=== PATIENT | female | born 1955 | race Caucasian/White ===

== ENCOUNTER → 2024-03-02 14:18 | Outpatient (REF) | payer MEDICARE, SELFPAY | LOC: WDC 14:18 | PROVIDERS: ATTENDING PHYSICIAN Nurse Practitioner Adult Health; FAMILY PHYSICIAN Internal Medicine | DX: Z12.31 Encounter for screening mammogram for malignant neoplasm of breast (principal) | CPT/HCPCS: 77063; 77067 ==

== ENCOUNTER → 2024-03-30 15:14 | Outpatient (REF) | payer MEDICARE, SELFPAY ==
[2024-03-30 16:06] LABS: Glucose 98 mg/dl (70-99); HDL Cholesterol 75 mg/dl; LDL Cholesterol, Calculated 102 mg/dl; Total Cholesterol 194 mg/dl (50-199); Triglyceride 85 mg/dl (10-149); Very Low Density Lipoprotein 17 mg/dl (0-30)
[2024-03-31 09:49] LABS: Glycohemoglobin (HgbA1c) 5.4 % (4.0-5.6)
== END ==
LOC: REG 15:14
PROVIDERS: ATTENDING PHYSICIAN Internal Medicine
DX: E78.5 Hyperlipidemia, unspecified (principal); R73.01 Impaired fasting glucose
CPT/HCPCS: 36415; 80061; 82947; 83036

== ENCOUNTER → 2025-04-02 14:36 | Outpatient (REF) | payer MEDICARE, SELFPAY ==
[2025-04-02 15:32] LABS: Hematocrit 38.8 % (37.0-47.0); Hemoglobin 13.1 g/dL (12.0-16.0); Mean Corp Hgb Conc. 33.8 g/dL (33.0-37.0); Mean Corpuscular Volume 99.5 fL (81.0-99.0); Nucleated Red Blood Cells % 0 %; Platelet Count 229 10^3/uL (130-400); Red Cell Dist. Width 11.8 % (11.5-14.5)
[2025-04-02 16:12] LABS: ALT (SGPT) 24 U/L (0-35); AST (SGOT) 22 U/L (14-36); Albumin 4.3 g/dl (3.5-5.0); Alkaline Phosphatase 57 U/L (38-126); Blood Urea Nitrogen 16 mg/dl (7-17); Calcium 9.4 mg/dl (8.4-10.2); Carbon Dioxide 29 mmol/L (22-30); Chloride 106 mmol/L (98-107); Glucose 106 mg/dl (70-99); HDL Cholesterol 71 mg/dl; LDL Cholesterol, Calculated 114 mg/dl; Potassium 4.8 mmol/L (3.5-5.1); Sodium 139 mmol/L (135-145); Total Protein 6.9 g/dl (6.3-8.2); Very Low Density Lipoprotein 20 mg/dl (0-30); eGFR > 60.00
[2025-04-02 16:34] LABS: Vitamin D, 25-OH*** 28.3 ng/mL (30-80)
[2025-04-03 07:32] LABS: Glycohemoglobin (HgbA1c) 5.6 % (4.0-5.6)
== END ==
LOC: REG 14:36
PROVIDERS: ATTENDING PHYSICIAN Family Medicine
DX: M54.2 Cervicalgia (principal); Z01.89 Encounter for other specified special examinations; M85.88 Other specified disorders of bone density and structure, other site; E78.2 Mixed hyperlipidemia; R73.01 Impaired fasting glucose; E55.9 Vitamin D deficiency, unspecified
CPT/HCPCS: 36415; 80053; 80061; 82306; 83036; 85025

== ENCOUNTER → 2025-05-08 12:55 | Outpatient (REF) | payer MEDICARE, SELFPAY | LOC: RAD 12:55 | PROVIDERS: ATTENDING PHYSICIAN Family Medicine | DX: Z13.820 Encounter for screening for osteoporosis (principal); M85.88 Other specified disorders of bone density and structure, other site | CPT/HCPCS: 77080 ==

== ENCOUNTER → 2025-06-05 15:37 | Outpatient (REF) | payer MEDICARE, SELFPAY | LOC: MRI 3T 15:37 | PROVIDERS: ATTENDING PHYSICIAN Family Medicine | DX: M54.2 Cervicalgia (principal) | CPT/HCPCS: 72141 ==

== ENCOUNTER → 2025-06-19 13:47 | Outpatient (REF) | payer MEDICARE, SELFPAY | LOC: WDC 13:47 | PROVIDERS: ATTENDING PHYSICIAN Nurse Practitioner Adult Health; FAMILY PHYSICIAN Family Medicine | DX: Z12.31 Encounter for screening mammogram for malignant neoplasm of breast (principal) | CPT/HCPCS: 77063; 77067 ==

== ENCOUNTER → 2025-08-19 16:24 | Outpatient (REF) | payer MEDICARE, SELFPAY | LOC: PAVMRI 16:24 | PROVIDERS: ATTENDING PHYSICIAN Family Medicine | DX: I63.9 Cerebral infarction, unspecified (principal) | CPT/HCPCS: 70551 ==

== ENCOUNTER → 2025-08-23 13:25 | Outpatient (REF) | payer MEDICARE, SELFPAY | LOC: RAD 13:25 | PROVIDERS: FAMILY PHYSICIAN Family Medicine | DX: M54.2 Cervicalgia (principal); M54.9 Dorsalgia, unspecified; I63.9 Cerebral infarction, unspecified | CPT/HCPCS: 72050; 93005 ==

== ENCOUNTER 2025-08-25 22:37 | Emergency (ER) | payer MEDICARE, SELFPAY ==
[2025-08-25 22:40] VITALS: BP 171/93
--- NOTE | 2025-08-25 23:29 | ED.GENMED ---
History of Present Illness
General
Chief Complaint: Musculo-Skeletal Complaint
Source: patient
Exam Limitations: none
Time Seen by Provider: 08/25/25 23:18
Nursing documentation reviewed up to this point in time: agreed with
History of Present Illness
History of Present Illness:
Note:
CHIEF COMPLAINT(S)
Right arm pain following a fall.
HISTORY OF PRESENT ILLNESS
The patient is a 69-year-old female with pmh of HLP, anxiety who presented with right arm pain after tripping over a suitcase in her hallway. This incident occurred as she was preparing to leave for a trip. The patient describes a fall where she
landed heavily on her right arm. She reports localized pain on the right arm, concentrated around the elbow. Pain is exacerbated by touch and certain movements, particularly pronation of the forearm. The patient can achieve full range of motion but
with significant pain in the right arm, inhibiting complete extension compared to the left arm. She denies any pain in the shoulder, suggesting the primary area of concern is the elbow region. She denies any wrist pain, chest pain, shortness of
breath, loss of consciousness, head ache, head injury, neck pain. She did not hit her head during the fall.
MEDICATIONS
SSRI
Vitamin D
atorvastatin
PHYSICAL EXAM
General: Alert, no acute distress.
Skin: Warm, dry.
Neck: Supple, trachea midline.
Eye Ears, nose, mouth and throat: Oral mucosa moist.
Cardiovascular: Normal peripheral perfusion, no edema.
Peripheral vascular: 2+ radial and ulnar pulses bilaterally.
Respiratory: Respirations are non-labored.
Gastrointestinal: Abdomen nondistended.
Back: Normal range of motion, normal alignment.
Musculoskeletal: Normal range of motion, normal strength. Tenderness to palpation over the right anterior lateral elbow. No visible or palpable deformity. No swelling. No ecchymosis. Pain with pronation. Full flexion and extension. No
tenderness to palpation right wrist. No pain with internal/external rotation of the right shoulder.
Neurological: Alert and oriented to person, place, time, and situation, no focal neurological deficit observed.
Psychiatric: Cooperative, appropriate mood and affect.
PLAN
The plan includes further evaluation of the X-rays to verify the presence of a small fracture at the radial head. If confirmed, the treatment may involve using a sling for support and to aid the healing process. Additional orthopedic consultation
may be considered based on radiographic findings.
DIFFERENTIAL DIAGNOSIS
The Differential Diagnosis includes, in no particular order and is not limited to:
1. Radial head fracture
2. Elbow contusion
3. Soft tissue injury
4. Ulnar collateral ligament injury
5. Osteoarthritis exacerbation
6. Bursitis
7. Tendinopathy
8. Radial neuropathy
9. Joint effusion
10. Muscle strain
CHART REVIEW
Reviewed ER physician documentation from 03/22/2021 patient seen for right thumb laceration
No hospital discharge summary to review
UPDATE
I evaluated splint, patient is neurovascularly intact, feels comfortable, able to wiggle fingers
MDM/DISPOSITION
69-year-old female presents to the ER today with concerns of right elbow pain following a fall. Patient reports that she tripped over her suitcase and landed on her right elbow. She denies wrist pain or shoulder pain. She not hit her head or lose
consciousness during the fall. She denies neck pain. On physical exam, she has tenderness to the proximal radius and pain with pronation. X-ray reveals concern for radial head fracture. Patient will be placed in sugar-tong splint. Discussed
strict return precautions. Discussed follow-up with Ortho. Patient stable for discharge.
Past History
Past History
ED Past Medical History: Hypercholesterolemia
ED Past Surgical History: Orthopedic
Social History
Tobacco: Non-smoker
Phy Exam
Physical Exam
Physical Exam:
see hpi
Course
Orders/Labs/Results
Orders:
Orders
08/25/25 22:52
CR Elbow - Right Min 3 Views Urgent
Comment:
Reason For Exam: fall, pain, tenderness
Forearm, Right 2 View [CR Forearm - Right 2 View] Urgent
Comment:
Reason For Exam: fall, pain, tenderness
08/25/25 23:48
Sling Right-Treatment ONCE
Sugar Ton Right-Treatment ONCE
Vital Signs
Initial and Last Documented VS:
Initial Vital Signs
Temp Pulse Resp BP Pulse Ox
98.6 F 74 18 171/93 96
08/25/25 22:40 08/25/25 22:40 08/25/25 22:40 08/25/25 22:40 08/25/25 22:40
Last Documented Vital Signs
Temp Pulse Resp BP Pulse Ox
98.6 F 70 16 172/87 100
08/25/25 22:40 08/26/25 00:29 08/26/25 00:29 08/26/25 00:29 08/26/25 00:29
Procedures
Splinting/Sling Placement
right elbow:
Procedure completed by: FAN Wilkinson
Pre-splint extermity exam: neurovascular intact
Type of splint: sugar-tong
Splint material: fiberglass
Splint checked by provider?: Yes
Type of sling: sling fitted
Normal distal neurovascular exam?: Yes
*Pulse Oximetry
SaO2: 96
Oxygen Mode of Delivery: Room air
Patient hypoxic: no
*Critical Care Note
Total Time (30-74mins, 75-104mins- exclusive of procedures): Not Applicable
ED Attending Note
-
Portions of this chart may have been created with voice recognition software.� Occasional wrong word or��sound alike� substitutions may have occurred due to the inherent limitations of voice recognition software.
Discharge Plan
Departure
Patient Disposition: Home (Routine Discharge)
Date of Disposition: 08/26/25
Time of Disposition: 00:20
Patient with high blood pressure during this ER visit?: Yes
Condition: Good
Discharge Problem:
Fracture of radial head, right, closed
Instructions: Elbow fracture, Splint Care, BLOOD PRESSURE
Referrals:
Aditya Turpin MD [Active, Orthopedics]
Aissatou Miramontes DO [Family Provider, Family Practice]
Activity Restrictions/Additional Instructions:
It is not recommended to drive with sugar tong splint. Please keep splint on until you see orthopedics.
Please call attached number to schedule appointment to see orthopedics in follow-up. Please state that you are seen in the emergency department for initial evaluation.
You can take Tylenol and Motrin as needed for pain.
PLEASE RETURN TO THE ER SHOULD YOU DEVELOP INCREASING PAIN OR SWELLING IN YOUR ARM, PALLOR, LOSS OF SENSATION, CHEST PAIN, SHORTNESS OF BREATH, OR ANY OTHER SIGNS OR SYMPTOMS WORRISOME TO YOU.
Interventions
Interventions:
*Risk Screen - Suicide Last Done: 08/25/25 22:41
*General Assessment Last Done: 08/25/25 22:41
*Neglect/Abuse Screening Last Done: 08/25/25 22:41
*ED- Fall Risk Assessment Last Done: 08/26/25 00:34
*ED COVID-19 Vaccine History Last Done: 08/25/25 22:41
*ED Influenza Vaccine History Last Done: 08/25/25 22:41
*Nursing Disposition Last Done: 08/26/25 00:35
ED-Musculoskeletal Assessment Last Done: 08/25/25 22:52
Discharge Date and Time
Discharge Date/Time: 08/26/25 00:35
Print Language: GREENLANDIC
[2025-08-26 00:29] VITALS: BP 172/87
== END 2025-08-26 00:35 | disposition home or self-care (01) ==
LOC: EMR 22:37
PROVIDERS: EMERGENCY PHYSICIAN Emergency Medicine; FAMILY PHYSICIAN Family Medicine
DX: S52.121A Displaced fracture of head of right radius, initial encounter for closed fracture (principal); W18.09XA Striking against other object with subsequent fall, initial encounter; E78.00 Pure hypercholesterolemia, unspecified
CPT/HCPCS: 99283; 29105; 73080; 73090

== ENCOUNTER → 2025-09-11 15:05 | Outpatient (REF) | payer MEDICARE, SELFPAY | LOC: RAD 15:05 | PROVIDERS: ATTENDING PHYSICIAN Family Medicine | DX: I63.9 Cerebral infarction, unspecified (principal); I67.82 Cerebral ischemia | CPT/HCPCS: 93306; 93880 ==